=== PATIENT | female | born 1955 | race Caucasian/White ===

== ENCOUNTER 2020-12-25 15:14 | Outpatient (REF) | payer MEDICAID, SELFPAY ==
--- NOTE | ~2020-12-25 | MM_ITS ---
EXAMINATION: MM SCREENING DIGITAL BREAST TOMOSYNTHESIS, BILATERAL CLINICAL INFORMATION: Screening. Asymptomatic. The lifetime risk of breast cancer based on the Tyrer-Cuzick Model is 10%. COMPARISON: Mammography: 08/21/2019 (new baseline) TECHNIQUE: Digital breast tomosynthesis is performed in both the craniocaudal and mediolateral oblique views along with computer-aided detection (CAD). Synthesized 2D images are generated from the tomosynthesis. Additional left MLO view is provided. FINDINGS: There are scattered areas of fibroglandular density (ACR BI-RADS breast composition Category b). There are no significant masses, abnormal calcifications, or other abnormalities. Parenchymal pattern is similar to prior exam. Axillary nodes are stable. The skin contours are smooth. There are no significant changes. MM/MM tomosynthesis screening BI IMPRESSION: No mammographic evidence of malignancy. ASSESSMENT: BI-RADS 1: Negative RECOMMENDATION: Routine annual mammography screening. This patient's information was entered into a reminder system with a target due date for their next mammogram.
== END 2020-12-25 15:15 | disposition home or self-care (01) ==
LOC: HO.MAMMO 15:14
PROVIDERS: Visit Provider Family Medicine
DX: Z12.31 Encounter for screening mammogram for malignant neoplasm of breast (principal)
CPT/HCPCS: 77063; 77067

== ENCOUNTER 2022-02-26 12:31 | Outpatient (REF) | payer MEDICAID, SELFPAY ==
--- NOTE | ~2022-02-26 | MM_ITS ---
EXAMINATION: MM SCREENING DIGITAL BREAST TOMOSYNTHESIS, BILATERAL CLINICAL INFORMATION: Screening. Asymptomatic. The lifetime risk of breast cancer based on the Tyrer-Cuzick Model is 14%. COMPARISON: Mammography: 12/25/2020, 08/21/2019 TECHNIQUE: Digital breast tomosynthesis is performed in both the craniocaudal and mediolateral oblique views along with computer-aided detection (CAD). Synthesized 2D images are generated from the tomosynthesis. Additional left MLO view is provided. FINDINGS: There are scattered areas of fibroglandular density (ACR BI-RADS breast composition Category b). Left breast has scattered stable nodularity anterior and posterior upper outer quadrant similar to prior studies. The right breast has new small oval asymmetric nodular density posterior central 9:00 position under 5 mm. Patient will be recalled for additional imaging. The remainder of the breasts show no significant changes from prior studies. There is no architectural abnormality or abnormal calcifications. The axilla and skin contours are unremarkable. MM/MM tomosynthesis screening BI IMPRESSION: Right: -Small nodular asymmetry posterior central 9:00 on CC view. Left: -No significant changes from prior exams. ASSESSMENT: BI-RADS 0: Incomplete - Need Additional Imaging Evaluation RECOMMENDATION: 1. Additional views of the right breast (spot CC, spot ML). 2. Targeted ultrasound if warranted after review of the additional views. 3. Radiology department staff will contact the patient for additional imaging. This patient's information was entered into a reminder system with a target due date for their next mammogram.
--- NOTE | ~2022-02-26 | MM_ITS ---
EXAMINATION: BONE DENSITOMETRY CLINICAL INDICATION: Menopause. COMPARISON: None (current study represents initial baseline exam). TECHNIQUE: Using a Optherion DXA System (software version: 13.1) manufactured by [employer], dual-energy x-ray absorptiometry was performed of the lumbar spine and left hip. The images are of good technical quality. Summary results are attached. FINDINGS: AP SPINE L1-L4: BMD 1.173 g/cm2, Z-score 1.1, T-score -0.1, normal. LEFT FEMUR, NECK: BMD 0.989 g/cm2, Z-score 0.9, T-score -0.4, normal. LEFT FEMUR, TOTAL: BMD 1.068 g/cm2, Z-score 1.4, T-score 0.5, normal. IDENTIFIED RISK FACTORS: Menopause. HISTORY OF FRACTURE: None listed. MEDICATIONS: None listed. MM/XR DEXA axial skeleton IMPRESSION: 1. DIAGNOSIS: Normal bone density based on the lowest T-score value of -0.4 in the femoral neck applying World Health Organization criteria. 2. 10-YEAR FRACTURE RISK PREDICTION, FRAX: According to the guidelines, FRAX calculation should only be performed on patients in the osteopenia bone density category. Therefore, FRAX was not performed on this patient. 3. Treatment Recommendations: NOF guidelines recommend consideration for treatment in postmenopausal women and men age 50 and older presenting with the following: -A hip or vertebral (clinical or morphometric) fracture. -T-score less than or equal to -2.5 at the femoral neck or spine after appropriate evaluation to exclude secondary causes. -Low bone mass at the hip or spine and a 10-year fracture probability by FRAX of greater than or equal to 3% for hip fracture or greater than or equal to 20% for major osteoporotic fracture based on the [place] adapted WHO algorithm. 4. Other Recommendations: All treatment decisions require clinical judgment and consideration of individual patient factors, including patient preferences, comorbidities, previous drug use, risk factors not captured in the FRAX model (e.g. frailty, falls, vitamin D deficiency, increased bone turnover, interval significant decline in bone density) and possible under or overestimation of fracture risk by FRAX. FUTURE SCAN RECOMMENDATION: People with diagnosed cases of osteoporosis or at high risk for fracture should have regular bone mineral density tests. For patients eligible for Medicare, routine testing is allowed once every 2 years. The testing frequency can be increased to one year for patients who have rapidly progressing disease, those who are receiving or discontinuing medical therapy to restore bone mass, or have additional risk factors.
== END 2022-02-26 12:32 | disposition home or self-care (01) ==
LOC: HO.MAMMO 12:31
PROVIDERS: PCP Internal Medicine; Visit Provider Internal Medicine
DX: Z12.31 Encounter for screening mammogram for malignant neoplasm of breast (principal); Z13.820 Encounter for screening for osteoporosis; Z78.0 Asymptomatic menopausal state
CPT/HCPCS: 77063; 77067; 77080

== ENCOUNTER 2022-03-09 13:16 | Outpatient (REF) | payer MEDICAID, SELFPAY ==
--- NOTE | ~2022-03-09 | MM_ITS ---
EXAMINATION: MM DIAGNOSTIC DIGITAL BREAST TOMOSYNTHESIS, RIGHT US DIAGNOSTIC ULTRASOUND BREAST, RIGHT CLINICAL INFORMATION: Recall from screening for small oval asymmetric nodular density posterior central 9:00 right breast. TC score 14%. COMPARISON: Mammography: 02/26/2022, 12/25/2020 TECHNIQUE: Digital breast tomosynthesis is performed. 2D images are generated from the tomosynthesis. The following views are obtained: Spot CC, spot ML. Ultrasound right breast is targeted to the lower and outer breast. Grayscale imaging and color Doppler are performed without and with harmonics. FINDINGS: There are scattered areas of fibroglandular density (ACR BI-RADS breast composition Category b). The additional spot views demonstrate benign-appearing tiny oval nodular asymmetry mid central 9:00 position, possibly intramammary node. Margins are circumscribed. Ultrasound demonstrates 2 small intramammary nodes mid 10:00 position, the smaller may represent finding on mammography, measuring 4 x 6 mm with normal mario architecture and color flow pattern. There is no solid mass or architectural abnormality or suspicious ultrasound finding. As a precaution, short interval follow-up right mammography will be requested to reassess finding and exclude developing density. Results are discussed with the patient at time of visit, using an foreign language interpreter. MM/MM tomosynthesis added views R IMPRESSION: -Small oval circumscribed nodule central mid 9:00 position, suspected intramammary node. -Targeted right breast ultrasound shows 2 small intramammary nodes in this vicinity, the smaller may represent the mammographic finding. ASSESSMENT: BI-RADS 3: Probably Benign RECOMMENDATION: Diagnostic right mammography in 6 months. This patient's information was entered into a reminder system with a target due date for their next mammogram.
== END 2022-03-09 13:17 | disposition home or self-care (01) ==
LOC: HO.MAMMO 13:16
PROVIDERS: PCP Internal Medicine; Visit Provider Internal Medicine
DX: R92.2 Inconclusive mammogram (principal)
CPT/HCPCS: 76642; 77061; 77065

== ENCOUNTER 2022-03-11 11:25 | Outpatient (REF) | payer MEDICAID, SELFPAY ==
[2022-03-15 21:06] LABS: HPV mRNA E6/E7 rflx Not Detected (Not Detected)
== END 2022-03-11 11:26 | disposition home or self-care (01) ==
LOC: HO.LNP 11:25
PROVIDERS: PCP Internal Medicine; Visit Provider Obstetrics & Gynecology
DX: N95.0 Postmenopausal bleeding (principal); N84.1 Polyp of cervix uteri
CPT/HCPCS: 57500; 87624; 88142; 99202

== ENCOUNTER → 2022-03-18 12:58 | Outpatient (BNVA) | payer MEDICAID, SELFPAY | PROVIDERS: PCP Internal Medicine; Visit Provider Obstetrics & Gynecology | DX: N85.02 Endometrial intraepithelial neoplasia [EIN] (principal) | CPT/HCPCS: 99212 ==

== ENCOUNTER 2022-03-19 13:54 | Outpatient (REF) | payer MEDICAID, SELFPAY ==
--- NOTE | ~2022-03-19 | US_ITS ---
EXAMINATION: US PELVIS CLINICAL INFORMATION: Postmenopausal bleeding. COMPARISON: None. TECHNIQUE: Ultrasound of the pelvis is performed using both transabdominal and transvaginal transducers along with Doppler. Transvaginal imaging is performed due to inadequate visualization transabdominally. FINDINGS: UTERUS: The uterus is anteverted and measures 6.6 cm in length, 2.8 cm in AP and 3.2 cm and transverse dimension. The double wall endometrial thickness is 0.88 cm. The endometrium is slightly heterogeneous with cystic area seen. The uterus is smooth in contour and has normal myometrial echogenicity. No visible fibroid. There are small nabothian cysts seen in the cervix. ADNEXA: Both ovaries are nonvisualized. There is no free fluid in cul-de-sac. US/US pelvic and transvaginal IMPRESSION: Heterogeneous thickened endometrium with cystic area in a postmenopausal patient. Recommend gynecological consultation. Ovaries are not seen. No free fluid in the cul-de-sac.
== END 2022-03-19 13:55 | disposition home or self-care (01) ==
LOC: HO.HMGCX 13:54
PROVIDERS: PCP Internal Medicine; Visit Provider Obstetrics & Gynecology
DX: N95.0 Postmenopausal bleeding (principal)
CPT/HCPCS: 76830; 76856

== ENCOUNTER 2022-03-26 09:35 | Day surgery (SDC) | payer MEDICAID, SELFPAY ==
--- NOTE | 2022-03-25 10:31 | HO.ANESPROP2 ---
Documented by User: Yenifer Hardwick NP 03/25/22 10:32 HPI - Anesthesia Eval Consult details Narrative: 66yo F for D&C Hysteroscopy poss polypectomy,poss myomectomy PMFSH Active Problems Active Problems: All Active Problems (Updated 03/18/22 @ 13:25 by Sean Sotomayor MD) EIN (endometrial intraepithelial neoplasia) (Acute) Endocervical polyp (Acute) Postmenopausal bleeding (Acute) Past Medical History Medical History Chronic low back pain Hypothyroidism Vitamin D deficiency Family History Family History Sister Breast cancer Father Heart disease Surgical History Surgical History History of hip surgery History of open reduction and internal fixation (ORIF) procedure Hx of tubal ligation Social History Social History Household Members: Spouse Housing: Apartment Alcohol intake: never Patient Tobacco Use Status: Never used Tobacco Tobacco use type: Cigarette Years Smoked: 1 Use of substances other than those prescribed or required for medical reasons: No Are you DNR?: No Advance Directives: No Advance Directives Information Provided: Yes Current occupational status: unemployed Sexual orientation: Straight/Heterosexual Gender identity: Female Meds Allergies Allergy/AdvReac Type Severity Reaction Status Date / Time No Known Allergies Allergy Verified 03/18/22 13:12 Home Medications Medication Instructions Recorded Confirmed Last Taken Type acetaminophen 650 mg 650 mg PO Q8H PRN Pain 08/04/20 03/26/22 Unknown History tablet,extended release ergocalciferol (vitamin D2) 1,250 1,250 mcg PO QWEEK 03/11/22 03/26/22 Unknown History mcg (50,000 unit) capsule levothyroxine 25 mcg tablet 25 mcg PO QAM 03/11/22 03/26/22 Unknown History Exam Exam Date and Time: March 25, 2022 1031 Assessment and Plan Assessment Anesthesia Assessment: Chart Reviewed Documented by User: Krishna Cruz MD 03/26/22 11:38 PMFSH Past Medical History Medical History Chronic low back pain Hypothyroidism Vitamin D deficiency Family History Family History Sister Breast cancer Father Heart disease Family history of problems with anesthesia: No Surgical History Surgical History History of hip surgery History of open reduction and internal fixation (ORIF) procedure Hx of tubal ligation History of Problems with Anesthesia: No Social History Social History Household Members: Spouse Housing: Apartment Alcohol intake: never Patient Tobacco Use Status: Never used Tobacco Tobacco use type: Cigarette Years Smoked: 1 Use of substances other than those prescribed or required for medical reasons: No Are you DNR?: No Advance Directives: No Advance Directives Information Provided: Yes Current occupational status: unemployed Sexual orientation: Straight/Heterosexual Gender identity: Female Meds Allergies Allergy/AdvReac Type Severity Reaction Status Date / Time No Known Allergies Allergy Verified 03/18/22 13:12 Home Medications Medication Instructions Recorded Confirmed Last Taken Type acetaminophen 650 mg 650 mg PO Q8H PRN Pain 08/04/20 03/26/22 Unknown History tablet,extended release ergocalciferol (vitamin D2) 1,250 1,250 mcg PO QWEEK 03/11/22 03/26/22 Unknown History mcg (50,000 unit) capsule levothyroxine 25 mcg tablet 25 mcg PO QAM 03/11/22 03/26/22 Unknown History Exam Airway Mallampati Class: II TM Dist: >3cm Neck ROM: Full Loose/Missing/Broken Teeth: No Heart: ok Lungs: ok Assessment and Plan Assessment Anesthesia Assessment: Anesthesia Plan Discussed and Chart Reviewed Final Anesthetic Review Family History of Problems with Anesthesia: No History of Problems with Anesthesia: No NPO: Yes ASA Class: II Final Preanesthetic Review: No Changes in Pt Med Stat, Meds/Allgs Chart Reviewed, Consent Obtained/Reviewed and Anes Risks/Benef Reviewed Patient Risk: Low Procedure Risk: Low Anesthetic Plan Anesthetic Plan: GA and Agree w/ Assess. and Plan Disposition: Standard PACU
[2022-03-26] VITALS (8 sets, daily range): BP systolic 115–134; BP diastolic 65–72; PULSE 62–69; RESP 16–18; TEMP 36.3–37.3; O2SAT 94–97; BMI 29.2
[2022-03-26] MEDS: Lactated Ringers 1,000 ML 100 ML IVCONT (10:49)
--- NOTE | 2022-03-26 11:15 | MHC.SHP ---
Pre-Procedural Eval Section A Date of Service: 03/26/22 The patient is an INPATIENT: No Changes since office visit: No Cold of Flu in the past 2 weeks, No New Medical Problems, No Changes in Medication and No Patient answered all questions The History & Physical has been completed within 30 days and I have reviewed it.: Yes Section B Chief Complaint: Endometrial intraepithelial neoplasia [EIN] Allergies: Allergies Allergy/AdvReac Type Severity Reaction Status Date / Time No Known Allergies Allergy Verified 03/18/22 13:12 Plan Diagnosis/Plan: Unchanged I have reviewed the history and physical and performed a pertinent physical examination on my patient. No changes have occurred unless specified.
--- NOTE | 2022-03-26 12:15 | P.BOP_ITS ---
Brief Operative Note Date of Service: 03/26/22 Pre-op diagnosis: Positive bleeding, EIN on endometrial polyp Post-op diagnosis: same ( endometrial polyp) Procedure: Hysteroscopy D&C, Polypectomy Surgeon: Sean Sotomayor MD Anesthesia: GLMA Was an Platform Architect used for this Procedure?: No Estimated blood loss (mL): 0 Pathology: other (Endometrial Scrapping. Polyp) Condition: stable Disposition: PACU
--- NOTE | 2022-03-26 12:16 | W.PM.OPN ---
Operative Note Operative Note Date of Service: 03/26/22 Narrative: Preop Diagnosis: Post Menopausal bleeding, ain, endometrial polyp Operation: Diagnostic Hysteroscopy, Dilataion & Curettage, polypectomy Post Op Diagnosis: endometrial polyp QBL: Minimal Anesthesia: GLMA Surgeon: Sean Sotomayor MD Pegger Dobby Looms: None Complication: None Pathology: Endometrial Scrapings Procedure: The patient was put in the dorsal lithotomy position, scrubbed, and draped in the usual manner. A sterile speculum was inserted in the patient's vagina. The anterior lip of the cervix was grasped with a single tooth tenaculum. The cervix was dilated up to 5 mm, then the scope was inserted in the patient's uterus. Inspection revealed endometrial polyp. The Myosure Reach device was used, endometrial polypectomy done; the scope was removed from the endometrial cavity , sharp curettings was carried on with minimal amount of tissues retrieved. At the end of the procedure, all instruments were taken out of the patient uterine and vaginal cavity. The single tooth tenaculum was removed and homeostasis was assured using pressure,. The patient tolerated the procedure well and was transferred to the PACU in a stable condition.
[2022-03-26] MEDS: oxyCODONE HCl Immed Release 5 MG TABLET PO (12:32)
[2022-03-26] MEDS: Acetaminophen 325 MG TABLET 650 MG PO (12:32)
[2022-03-26] MEDS: fentaNYL citrate/PF 100 MCG/2 ML VIAL 25 MCG IVPUSH (12:33)
== END 2022-03-26 13:50 | disposition home or self-care (01) ==
PROVIDERS: PCP Internal Medicine; Visit Provider Obstetrics & Gynecology
PROC: 0UDB8ZZ Extraction of Endometrium, Via Natural or Artificial Opening Endoscopic (ICD-10-PCS; CPT 58558; principal; 2022-03-26 11:50)
DX: C54.1 Malignant neoplasm of endometrium (principal); N95.0 Postmenopausal bleeding; M54.50 Low back pain, unspecified; G89.29 Other chronic pain; E55.9 Vitamin D deficiency, unspecified; E03.9 Hypothyroidism, unspecified; Z79.899 Other long term (current) drug therapy; Z98.51 Tubal ligation status; Z87.891 Personal history of nicotine dependence
CPT/HCPCS: 58558; 88305; 88341; 88342; 88360; J1100; J1885; J2405; J3010

== ENCOUNTER → 2022-04-01 12:52 | Outpatient (BNVA) | payer MEDICAID, SELFPAY | PROVIDERS: PCP Internal Medicine; Visit Provider Obstetrics & Gynecology | DX: C54.1 Malignant neoplasm of endometrium (principal) | CPT/HCPCS: 99212 ==

== ENCOUNTER 2022-09-09 13:10 | Outpatient (REF) | payer MEDICAID, SELFPAY ==
--- NOTE | ~2022-09-09 | MM_ITS ---
EXAMINATION: MM DIAGNOSTIC DIGITAL BREAST TOMOSYNTHESIS, RIGHT CLINICAL INFORMATION: Short interval follow-up probable benign small oval nodule, possibly intramammary node. Family history breast cancer, sister. The lifetime risk of breast cancer based on the Tyrer-Cuzick Model is 14%. COMPARISON: Prior mammography exams, most recent 03/09/2022. TECHNIQUE: Digital breast tomosynthesis is performed in both the craniocaudal and mediolateral oblique views along with computer-aided detection (CAD). Synthesized 2D images are generated from the tomosynthesis. FINDINGS: There are scattered areas of fibroglandular density (ACR BI-RADS breast composition Category b). The small oval nodule posterior central 9:00 right breast is similar to prior exam. This may represent an intramammary node as suspected on targeted right breast ultrasound. There is no developing density or interval architectural abnormality or significant change. No abnormal calcifications. The axilla and skin contours are unremarkable. Results are provided to the patient at time of visit by the technologist. MM/MM tomosynthesis diagnostic RT IMPRESSION: There are no significant changes from prior study. ASSESSMENT: BI-RADS 3: Probably Benign RECOMMENDATION: Diagnostic mammography at time of annual bilateral mammography, due in 6 months. This patient's information was entered into a reminder system with a target due date for their next mammogram.
== END 2022-09-09 13:11 | disposition home or self-care (01) ==
LOC: HO.MAMMO 13:10
PROVIDERS: Visit Provider Internal Medicine
DX: R92.2 Inconclusive mammogram (principal)
CPT/HCPCS: 77061; 77065

== ENCOUNTER 2023-03-15 13:06 | Outpatient (REF) | payer MEDICAID, SELFPAY ==
--- NOTE | ~2023-03-15 | MM_ITS ---
EXAMINATION: MM DIAGNOSTIC DIGITAL BREAST TOMOSYNTHESIS, BILATERAL CLINICAL INFORMATION: 6 month follow-up for suspected small right breast intramammary lymph node 9:00 axis, posterior one third, just lateral of the nipple line. COMPARISON: Mammography: 09/09/2022, 03/09/2022 mammography and ultrasound, 02/26/2022, 12/25/2020, 08/21/2019. TECHNIQUE: Digital breast tomosynthesis is performed in both the craniocaudal and mediolateral oblique views along with computer-aided detection (CAD). Synthesized 2D images are generated from the tomosynthesis. FINDINGS: There are scattered areas of fibroglandular density (ACR BI-RADS breast composition Category b). There is a stable small 4 mm intramammary lymph node in the 9:00 axis of the right breast just lateral to the nipple line, posterior one third. This is unchanged and benign. There are several other small lymph nodes in both breasts, statistically benign. There are benign vascular calcifications. There are no suspicious masses, suspicious grouped calcifications, or areas of architectural distortion in either breast. The parenchymal pattern is stable from prior exams. MM/MM tomosynthesis diagnostic BI IMPRESSION: There are no significant changes from the prior study. No findings suspicious for malignancy in either breast. Stable benign findings both breasts. Recommend the patient return return to routine annual screening mammography. ASSESSMENT: BI-RADS BI-RADS 2 - Benign Findings RECOMMENDATION: 1 year F/U Results were provided to the patient at time of visit by the technologist. This patient's information was entered into a reminder system with a target due date for their next mammogram.
== END 2023-03-15 13:07 | disposition home or self-care (01) ==
LOC: HO.MAMMO 13:06
PROVIDERS: PCP Internal Medicine; Visit Provider Internal Medicine
DX: R92.2 Inconclusive mammogram (principal)
CPT/HCPCS: 77062; 77066

== ENCOUNTER → 2023-03-15 13:30 | Outpatient (BNV) | payer MEDICAID, SELFPAY | PROVIDERS: PCP Internal Medicine; Visit Provider Radiology Diagnostic Radiology | DX: R92.323 Mammographic fibroglandular density, bilateral breasts (principal); D24.9 Benign neoplasm of unspecified breast; R92.1 Mammographic calcification found on diagnostic imaging of breast | CPT/HCPCS: 77062; 77066 ==